=== PATIENT | male | born 1980 | race Caucasian/White ===

== ENCOUNTER 2016-09-27 19:34 | Emergency (ER) | payer SELFPAY ==
--- NOTE | 2016-09-27 21:15 | XR ---
EXAMINATION TYPE: XR shoulder complete LT DATE OF EXAM: 09/27/2016 9:04 PM COMPARISON: NONE HISTORY: Shoulder pain TECHNIQUE: 3 views FINDINGS: I see no fracture nor dislocation. Joint spaces are normal. There are no pathologic calcifi cations. IMPRESSION: Negative left shoulder exam.
--- NOTE | 2016-09-27 21:16 | XR ---
EXAMINATION TYPE: XR elbow complete RT DATE OF EXAM: 09/27/2016 9:04 PM COMPARISON: NONE HISTORY: Pain TECHNIQUE: 3 views FINDINGS: There is no sign of fracture nor dislocation. Joint spaces are normal. There is no sign of elbow joint effusion. IMPRESSION: Negative right elbow exam.
--- NOTE | 2016-09-27 21:17 | ED ---
General Adult HPI - General Chief complaint: Extremity Injury, Upper Stated complaint: Left Shoulder Injury/Right Elbow Injury Time Seen by Provider: 09/27/16 20:41 Source: patient, RN notes reviewed Mode of arrival: ambulatory Limitations: no limitations - History of Present Illness Initial comments: This is a 36-year-old male presents with left shoulder pain and chronic right elbow pain. Patient states he hurt his right elbow approximately 8 or 9 months ago. Patient states he hit it on a metal table. Patient denies any numbness/ weakness or tingling in the right upper extremity. Patient also complains of left shoulder pain. Patient states his left shoulder pain is intermittent. Patient states he frequently "dislocates and relocate's" his left shoulder. Patient denies any known injury to the left shoulder. Patient states pain is worse to the posterior and anterior portions of the left shoulder into the pectoralis muscle. Patient states pain is worse with lifting the left arm. 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 Patient denies any recent fever, chills, shortness breath, chest pain, abdominal pain, nausea/vomiting/diarrhea, back pain, hematuria, headache , or visual changes, or any other complaints. - Related Data Previous Rx's Medication Instructions Recorded Ibuprofen [Motrin] 600 mg PO Q8HR PRN #20 tab 11/02/15 Allergies Allergy/AdvReac Type Severity Reaction Status Date / Time Penicillins Allergy Anaphylaxis Verified 09/27/16 19:48 Review of Systems ROS Statement: Those systems with pertinent positive or pertinent negative responses have been documented in the HPI. ROS Other: All systems not noted in ROS Statement are negative. Past Medical History Additional Past Medical History / Comment(s): RA History of Any Multi-Drug Resistant Organisms: None Reported Past Surgical History: Appendectomy Past Psychological History: No Psychological Hx Reported Smoking Status: Never smoker Past Alcohol Use History: Occasional Past Drug Use History: Marijuana General Exam - General Exam Comments Initial Comments: General: The patient is awake and alert, in no distress, and does not appear acutely ill. Neck: The neck is supple, there is no tenderness or JVD. No cervical midline tenderness. Cardiovascular: There is a regular rate and rhythm. No murmur, rub or gallop is appreciated. Respiratory: Lungs are clear to auscultation, respirations are non-labored, breath sounds are equal. No wheezes, stridor, rales, or rhonchi. Musculoskeletal: There is tenderness to palpation over the posterior aspect of the left shoulder and to the anterior aspect of the left shoulder. There is some muscle soreness to the left pectoralis muscle that is reproducible. There is tenderness to palpation over the right olecranon process. There is no tenderness to palpation of the ulnar tunnel or medial or lateral aspects of the right elbow. Positive empty can test on the left side. Full range of motion, strength 5/5 and Sensation intact. Radial pulses 2+ bilaterally. Capillary refill is normal at less than 2 seconds. Neurological: A&O x 3. CN II-XII intact, There are no obvious motor or sensory deficits. Coordination appears grossly intact. Speech is normal. Skin: Skin is warm and dry and no rashes or lesions are noted. Psychiatric: Normal mood and affect. Limitations: no limitations Course Vital Signs 09/27/16 09/27/16 19:44 21:23 Temperature 98.3 F 98.4 F Pulse Rate 69 84 Respiratory 18 16 Rate Blood Pressure 163/88 148/96 O2 Sat by Pulse 100 98 Oximetry Medical Decision Making - Medical Decision Making This is a 35-year-old male presents with left shoulder pain and right elbow pain. There was no known injury. On physical exam There is tenderness to palpation over the posterior aspect of the left shoulder and to the anterior aspect of the left shoulder. There is some muscle soreness to the left pectoralis muscle that is reproducible. There is tenderness to palpation over the right olecranon process. There is no tenderness to palpation of the ulnar tunnel or medial or lateral aspects of the right elbow. Positive empty can test on the left side. Full range of motion, strength 5/5 and Sensation intact. Radial pulses 2+ bilaterally. Capillary refill is normal at less than 2 seconds.. X-rays of left shoulder and right elbow were done and reviewed showing: X-ray shoulder: Negative. Left shoulder exam. X-ray right elbow: Negative. Right elbow exam. Reported by Dr. Zavala. Discussed results with patient. Discussed patient can use a sling to the left arm, if needed for shoulder pain. Discussed [id number] Tylenol and Motrin. Discussed rest, ice and use sling for support. Discussed close follow-up with patient's family physician. Discussed return parameters.Discussed that patient should follow up with PCP in one to 2 days or return to the [facility] for any worsening symptoms or for any further concerns. . Patient was receptive to this plan and patient will be discharged home. Disposition Clinical Impression: Left shoulder pain, Chronic pain of right elbow Disposition: HOME SELF-CARE Condition: Good Instructions: Shoulder Pain (ED) Additional Instructions: Please rest, ice, elevate and use sling for support. Please use over-the- counter Tylenol and Motrin as needed for any pain. Please follow-up with family doctor in the next 2 days of symptoms have not improved. Please return to emergency room if the symptoms increase or worsen or for any other concerns. Referrals: None,Stated [Primary Care Provider] - 1-2 days Janae Foy MD [REFERRING] - 1-2 days Tasneem Salcedo III, MD [STAFF PHYSICIAN] - 1-2 days Gisela Wolf MD [STAFF PHYSICIAN] - 1-2 days Time of Disposition: 21:34
[2016-09-27 21:23] VITALS: BP 148/96; PULSE 84; RESP 16; TEMP 98.4
== END 2016-09-27 21:44 | disposition home or self-care (01) ==
LOC: EC 19:34
DX: M25.521 Pain in right elbow (principal); M25.512 Pain in left shoulder; G89.29 Other chronic pain; Z88.0 Allergy status to penicillin; W22.03XA Walked into furniture, initial encounter
CPT/HCPCS: 99283

== ENCOUNTER 2017-09-28 16:01 | Emergency (ER) | payer OTHER ==
[2017-09-28 16:24] VITALS: TEMP 98.5
--- NOTE | 2017-09-28 16:59 | ED ---
Lower Extremity Injury HPI - General Chief Complaint: Extremity Injury, Lower Stated Complaint: foot pain Time Seen by Provider: 09/28/17 16:23 Source: patient, RN notes reviewed Mode of arrival: ambulatory Limitations: no limitations - History of Present Illness Initial Comments: This is a 37-year-old male who presents to the emergency department with chief complaint of left foot pain. Patient states that last evening he twisted his left foot. He states that when he got home there was swelling on top of his foot. He states that today his foot developed bruising and there is tenderness. He denies any other injuries or trauma. Denies fever, chills, chest pain, shortness of breath, abdominal pain, nausea or vomiting, constipation or diarrhea, dysuria or hematuria, numbness or tingling, headache or vision changes. - Related Data Previous Rx's Medication Instructions Recorded Ibuprofen [Motrin] 600 mg PO Q8HR PRN #20 tab 11/02/15 Allergies Allergy/AdvReac Type Severity Reaction Status Date / Time Penicillins Allergy Anaphylaxis Verified 09/28/17 16:23 Review of Systems ROS Statement: Those systems with pertinent positive or pertinent negative responses have been documented in the HPI. ROS Other: All systems not noted in ROS Statement are negative. Past Medical History Additional Past Medical History / Comment(s): RA History of Any Multi-Drug Resistant Organisms: None Reported Past Surgical History: Appendectomy Past Psychological History: No Psychological Hx Reported Smoking Status: Never smoker Past Alcohol Use History: Occasional Past Drug Use History: Marijuana General Exam - General Exam Comments Initial Comments: General: Awake and alert, well-developed; in no apparent distress. HEENT: Head atraumatic, normocephalic. Pupils are equal, round and reactive to light. Extraocular movements intact. Oropharynx moist without erythema or exudate. Neck: Supple. Normal ROM. Cardiovascular: Regular rate and rhythm. No murmurs, rubs or gallops. Chest symmetrical. Respiratory: Lungs clear to auscultation bilaterally. No wheezes, rales or rhonchi. Normal respiratory effort with no use of accessory muscles. Musculoskeletal: Normal active range of motion of left ankle and digits. There is ecchymosis and tenderness noted at the dorsal distal aspect of the left foot. No swelling or erythema. Sensation is intact. Pedal pulses are 2+ equal and palpable bilaterally. Skin: [place], warm and dry without rashes or lesions. Neurological: Alert and oriented x3. CN II-XII grossly intact. Speech is fluent and answers are appropriate. No focal neuro deficits. Psychiatric: Normal mood and affect. No overt signs of depression or anxiety noted. Limitations: no limitations Course Vital Signs 09/28/17 16:20 Temperature 98.5 F Pulse Rate 81 Respiratory 20 Rate Blood Pressure 158/97 O2 Sat by Pulse 98 Oximetry Medical Decision Making - Medical Decision Making This is a 37-year-old male who presents to the emergency department for evaluation of left foot injury. X-ray revealed no acute fractures or dislocations. Patient will be provided a referral to orthopedics for further evaluation of pain does not subside in 1 week. Recommended ice and ibuprofen or Tylenol as needed. Patient is in agreement with plan and voices understanding. All questions were answered. - Radiology Data Radiology results: report reviewed Left foot x-ray impression: Negative left foot exam. Disposition Clinical Impression: Left foot pain Disposition: HOME SELF-CARE Condition: Good Instructions: Foot Sprain (ED), Foot Contusion (ED) Additional Instructions: Please follow up with Dr. Holedr[facility] if pain does not subside. Please follow up with primary care provider within 1-2 days. Return to emergency department if symptoms should worsen or any concerns arise. Referrals: None,Stated [Primary Care Provider] - 1-2 days Sean Holder MD [Medical Doctor] - 1-2 days Time of Disposition: 17:37
--- NOTE | 2017-09-28 16:59 | XR ---
EXAMINATION TYPE: XR foot complete LT DATE OF EXAM: 09/28/2017 COMPARISON: NONE HISTORY: Foot pain TECHNIQUE: 3 views FINDINGS: I see no fracture nor dislocation. Joint spaces are normal. Metatarsals are intact. IMPRESSION: Negative left foot exam.
[2017-09-28 17:53] VITALS: BP 144/80; PULSE 61; RESP 18
== END 2017-09-28 17:55 | disposition home or self-care (01) ==
LOC: EC 16:01
DX: M79.672 Pain in left foot (principal); Z88.0 Allergy status to penicillin
CPT/HCPCS: 99283

== ENCOUNTER 2018-04-10 15:45 | Emergency (ER) | payer OTHER ==
--- NOTE | 2018-04-10 16:43 | XR ---
EXAMINATION TYPE: XR ankle complete RT DATE OF EXAM: 04/10/2018 COMPARISON: NONE HISTORY: Ankle pain TECHNIQUE: 3 views FINDINGS: Ankle mortise is anatomic. I see no fracture nor dislocation. There is a plantar calcaneal spur. IMPRESSION: Calcaneal spurring. No fracture.
--- NOTE | 2018-04-10 16:46 | XR ---
EXAMINATION TYPE: XR foot complete RT DATE OF EXAM: 04/10/2018 COMPARISON: NONE HISTORY: Foot pain TECHNIQUE: 3 views FINDINGS: There is plantar calcaneal spurring. There is no fracture nor dislocation. Metatarsals are intact. There are no erosions. IMPRESSION: No acute abnormality of the right foot.
[2018-04-10 17:09] VITALS: BP 126/83; PULSE 60; RESP 18; TEMP 98.4
[2018-04-10] MEDS ORDERED: NAPROXEN 250 MG TAB PO STA (17:47)
--- NOTE | 2018-04-10 17:52 | ED ---
Lower Extremity Injury HPI - General Chief Complaint: Extremity Injury, Lower Stated Complaint: right ankle swelling Time Seen by Provider: 04/10/18 17:36 Source: patient Mode of arrival: ambulatory Limitations: no limitations - History of Present Illness Initial Comments: 37-year-old male past medical history of arthritis who presents today for chief complaint of right leg pain. Patient states that his right leg isn't bothering him, no more than his usual however he did not feel like going to work due to this chronic pain so he decided to present to the emergency department for work note because he stated that he would be fired if he didnt have one. Pt states its his same daily dull ache in the right knee and hip that he has had "forever " Pt denies numbness, tingling, paresthesia, loss sensation, muscle weakness, pallor, coolness of the extremity, trauma or injury to the extremity. Patient states that the pain is mostly in his right knee, with minimal pain in his right. Patient isn't requesting any narcotics. He states that he simply wants a work note and to go home and sleep. Patient denies any recent fever, chills, shortness of breath, chest pain, back pain, abdominal pain, nausea or vomiting, numbness or tingling, dysuria or hematuria, constipation or diarrhea, headaches or visual changes, or any other complaints. - Related Data Previous Rx's Medication Instructions Recorded Naproxen [Naprosyn] 500 mg PO Q12HR PRN 5 Days #10 tab 04/10/18 Allergies Allergy/AdvReac Type Severity Reaction Status Date / Time Penicillins Allergy Anaphylaxis Verified 04/10/18 17:35 Review of Systems ROS Statement: Those systems with pertinent positive or pertinent negative responses have been documented in the HPI. ROS Other: All systems not noted in ROS Statement are negative. Constitutional: Denies: fever, chills, weight change, night sweats Eyes: Denies: vision change Respiratory: Denies: cough, dyspnea, wheezes, hemoptysis, stridor Cardiovascular: Denies: chest pain, palpitations Endocrine: Denies: fatigue Gastrointestinal: Denies: abdominal pain, nausea, vomiting, diarrhea, constipation, hematemesis Genitourinary: Denies: urgency, dysuria, frequency, hematuria Musculoskeletal: Reports: arthralgia. Denies: back pain, joint swelling Skin: Denies: rash, lesions Neurological: Denies: headache, weakness, numbness, paresthesias, confusion, abnormal gait Past Medical History Additional Past Medical History / Comment(s): RA History of Any Multi-Drug Resistant Organisms: None Reported Past Surgical History: Appendectomy Past Psychological History: No Psychological Hx Reported Smoking Status: Never smoker Past Alcohol Use History: Occasional Past Drug Use History: Marijuana General Exam - General Exam Comments Initial Comments: General: The patient is awake and alert, in no distress, and does not appear acutely ill. Eye: Pupils are equal, round and reactive to light, extra-ocular movements are intact. No nystagmus. There is normal conjunctiva bilaterally. No signs of icterus. Ears, nose, mouth and throat: There are moist mucous membranes and no oral lesions. Cardiovascular: There is a regular rate and rhythm. No murmur, rub or gallop is appreciated. Respiratory: Lungs are clear to auscultation, respirations are non-labored, breath sounds are equal. No wheezes, stridor, rales, or rhonchi. Musculoskeletal: No overlying rashes, soft tissue swelling, lesions palpable defects or deformities of the hips, knees, ankles of the right lower extremity. Normal ROM with 5/5 strength, no tenderness to range of motion of the hip, knee , ankles and feet bilaterally. Sensation intact LE equally b/l. DP and posterior tibial pulses equal bilaterally 2+. Compartments soft and compressible. Mild creptius noted on right knee ROM examination. Neurological: A&O x 3. CN II-XII intact, There are no obvious motor or sensory deficits. Coordination appears grossly intact. Speech is normal. Skin: Skin is warm and dry and no rashes or lesions are noted. Psychiatric: Cooperative, appropriate mood & affect, normal judgment. Limitations: no limitations Course Vital Signs 04/10/18 17:05 Temperature 98.4 F Pulse Rate 60 Respiratory 18 Rate Blood Pressure 126/83 O2 Sat by Pulse 99 Oximetry Medical Decision Making - Medical Decision Making Pt refused any imaging today stating that he has the same pain with no trauma or change, he "just needs a work note". Pt accepted naprosen for OA and an RX to take home for 5 days to take PRN. Physical examination unremarkable, aside from mild creptius of the right knee suspicious for osteoarthritis. Case discussed with Dr. Loza, pt discharged in stable condition with work note for [email or web address]. Disposition Clinical Impression: Right leg pain Disposition: HOME SELF-CARE Condition: Good Instructions: Leg Pain (ED) Additional Instructions: Please use medication as discussed. Please follow-up with family doctor in the next 2 days of symptoms have not improved. Please return to emergency room if the symptoms increase or worsen or for any other concerns. Prescriptions: Naproxen [Naprosyn] 500 mg PO Q12HR PRN 5 Days #10 tab PRN Reason: Pain Is patient prescribed a controlled substance at d/c from ED?: No Referrals: None,Stated [Primary Care Provider] - 1-2 days Janae Foy MD [REFERRING] - 1-2 days Time of Disposition: 17:52
== END 2018-04-10 18:30 | disposition home or self-care (01) ==
LOC: EC 15:45
DX: M79.604 Pain in right leg (principal); Z88.0 Allergy status to penicillin
CPT/HCPCS: 99283

== ENCOUNTER 2019-04-14 23:48 | Emergency (ER) | payer OTHER ==
--- NOTE | 2019-04-15 00:45 | XR ---
EXAM: XR Right Ankle Complete, 3 or More Views CLINICAL HISTORY: ITS.REASON XR Reason: Pain TECHNIQUE: Frontal, lateral and oblique views of the right ankle. COMPARISON: 04/10/2018. FINDINGS: Bones/joints: Mild plantar calcaneal spur. No acute fracture. No dislocation. Soft tissues: Unremarkable. IMPRESSION: No acute findings.
[2019-04-15] MEDS ORDERED: IBUPROFEN 600 MG STARTER PACK 4 TAB BTL PO STA (01:06)
--- NOTE | 2019-04-15 01:08 | ED ---
Lower Extremity Injury HPI - General Chief Complaint: Extremity Injury, Lower Stated Complaint: [facility] Ankle Injury Time Seen by Provider: 04/15/19 00:48 Source: patient Mode of arrival: ambulatory Limitations: no limitations - History of Present Illness Initial Comments: 38 year-old male patient presents to the emergency department today for evaluation of right ankle injury. Patient states he was at work when he dropped a case of pop on his ankle. Patient states that the area immediately became bruise and started to swell. Patient states he is having difficulty bearing weight or ambulating on the leg. Patient states he did have a previous fracture to the ankle many years ago. Denies any other injuries. Patient denies any headache, neck pain, back pain, chest pain, shortness of breath, dizziness, weakness, abdominal pain, nausea, vomiting, or difficulties with bowel movements or urination. - Related Data Previous Rx's Medication Instructions Recorded Naproxen [Naprosyn] 500 mg PO Q12HR PRN 5 Days #10 tab 04/10/18 Ibuprofen [Motrin] 600 mg PO Q8HR PRN #30 tab 04/15/19 Allergies Allergy/AdvReac Type Severity Reaction Status Date / Time Penicillins Allergy Anaphylaxis Verified 04/14/19 23:56 Review of Systems ROS Statement: Those systems with pertinent positive or pertinent negative responses have been documented in the HPI. ROS Other: All systems not noted in ROS Statement are negative. Past Medical History Past Medical History: Rheumatoid Arthritis (RA) Additional Past Medical History / Comment(s): RA, History of Any Multi-Drug Resistant Organisms: None Reported Past Surgical History: Appendectomy Past Psychological History: No Psychological Hx Reported Smoking Status: Never smoker Past Alcohol Use History: Rare Past Drug Use History: Marijuana General Exam Limitations: no limitations General appearance: alert, in no apparent distress, other (Physical well- developed, well-nourished adult male patient in no acute distress. Vital signs upon presentation are temperature 98.4F, pulse 80, respirations 18, blood pressure 131/77, pulse ox 98% on room air.) Eye exam: Present: normal appearance, PERRL, EOMI. Absent: scleral icterus, conjunctival injection, periorbital swelling ENT exam: Present: normal exam, normal oropharynx, mucous membranes moist Respiratory exam: Present: normal lung sounds bilaterally. Absent: respiratory distress, wheezes, rales, rhonchi, stridor Cardiovascular Exam: Present: regular rate, normal rhythm, normal heart sounds. Absent: systolic murmur, diastolic murmur, rubs, gallop, clicks GI/Abdominal exam: Present: soft, normal bowel sounds. Absent: distended, tenderness, guarding, rebound, rigid Extremities exam: Present: full ROM, tenderness (Over the medial right ankle), normal capillary refill, other (There is ecchymosis and soft tissue swelling noted over the medial right ankle. Skin is otherwise pink, warm, dry. Cap refills less than 3 seconds. Pedal and posttibial pulses are 2+ and equal bilaterally.). Absent: normal inspection, pedal edema, joint swelling, calf tenderness Neurological exam: Present: alert, oriented X3, CN II-XII intact Psychiatric exam: Present: normal affect, normal mood Skin exam: Present: warm, dry, intact, normal color. Absent: rash Course Vital Signs 04/14/19 04/15/19 23:53 01:11 Temperature 98.4 F 98.2 F Pulse Rate 80 58 L Respiratory 18 16 Rate Blood Pressure 131/77 119/69 O2 Sat by Pulse 98 100 Oximetry Medical Decision Making - Medical Decision Making 38 old male patient presents to the emergency department today for evaluation of right ankle pain after an injury at work. Physical examination did reveal soft tissue swelling and ecchymosis noted over the medial ankle. X-rays were obtained and showed no acute fractures or dislocations. Patient was discharged home at this time to follow-up with his primary care physician for recheck in 1- 2 days. He is instructed to have repeat x-rays performed in 7-10 days if pain symptoms persist. Return parameters were discussed in detail. He verbalizes understanding and agrees with this plan. - Radiology Data Radiology results: report reviewed, image reviewed 3 views of the right ankle are obtained. Report was reviewed in its entirety. Impression by Dr. Marrero shows no acute findings. Disposition Clinical Impression: Contusion of right ankle Disposition: HOME SELF-CARE Condition: Good Instructions (If sedation given, give patient instructions): Contusion in Adults (ED) Additional Instructions: Take medication as directed. Rest, ice, elevate the right ankle. Follow-up with your primary care physician for recheck in 1-2 days. Follow up with orthopedics if symptoms aren't improved over the next 7-10 days. Return to the emergency department immediately for any new, worsening, or concerning symptoms. Prescriptions: Ibuprofen [Motrin] 600 mg PO Q8HR PRN #30 tab PRN Reason: Pain Is patient prescribed a controlled substance at d/c from ED?: No Referrals: Sean Holder MD [Medical Doctor] - 1-2 days Time of Disposition: 01:08
[2019-04-15 01:14] VITALS: BP 119/69; PULSE 58; RESP 16; TEMP 98.2
== END 2019-04-15 01:37 | disposition home or self-care (01) ==
LOC: EC 23:48
DX: S90.01XA Contusion of right ankle, initial encounter (principal); Z87.39 Personal history of other diseases of the musculoskeletal system and connective tissue; Z88.0 Allergy status to penicillin; W20.8XXA Other cause of strike by thrown, projected or falling object, initial encounter; Y92.69 Other specified industrial and construction area as the place of occurrence of the external cause; Y99.0 Civilian activity done for income or pay
CPT/HCPCS: 99283